=== PATIENT | female | born 1985 | race Caucasian/White ===

== ENCOUNTER 2016-11-18 11:13 | Inpatient (IN) | payer OTHER ==
[2016-11-18] VITALS (87 sets, daily range): BP systolic 91–159; BP diastolic 57–106; PULSE 63–119; RESP 18–20; TEMP 97.3–100.1; O2SAT 95–100
[~2016-11-18] VITALS: Ht 165.1 cm; Wt 76.0 kg
[2016-11-18] MEDS ORDERED: LACTATED RINGER'S 1000 ML INJ 1,000 ML IV PRN (12:19)
--- NOTE | 2016-11-18 12:19 | PD ---
HPI Chief Complaint contractions and SROM Date Seen: Nov 18, 2016 Time Seen: 12:08 Travel History International Travel<30 Days: No Contact w/Intl Traveler<30Days: No Known Affected Area: No History of Present Illness HPI 31-year-old 1 at 39+ weeks gestation who reports spontaneous rupture of membranes at midnight last night with increasing contractions since that time. She is now having contractions every 3 minutes. She reports that the fluid was clear. She denies any vaginal bleeding. No fever or chills or abdominal pain other than the contractions. Her cervix is 2/90/-1/vtx with gross ROM. Weeks Gestation: 39 Para: 0 : 1 History Past Medical History Narrative Medical One prior kidney infection not during this Obstetric History Obstetric History Primigravida, patient of Dr. Taylor GBS positive, A+, AST negative, rubella immune, RPR nonreactive Past Surgical History Narrative Surgical Breast augmentation Family History Family History: Negative Social History Narrative Social History , is [employer] Alcohol Use: No Tobacco Use: No Substance Abuse: No Review of Systems Except as stated in HPI: all other systems reviewed are Neg Physical Exam Narrative GENERAL: Well-nourished, well-developed patient. SKIN: Warm and dry. HEAD: Normocephalic and atraumatic. EYES: No scleral icterus. No injection or drainage. ENT: No nasal drainage noted. Mucous membranes pink. Airway patent. NECK: Supple, trachea midline. No JVD. CARDIOVASCULAR: Regular rate and rhythm without murmurs, gallops, or rubs. RESPIRATORY: Breath sounds equal bilaterally. No accessory muscle use. ABDOMEN/GI: Abdomen soft, non-tender, bowel sounds present, no rebound, no guarding Gravid to [-] weeks size Fundal Height: [38-] GENITOURINARY: External Genitalia: intact and normal in appearance BUS glands: [-Negative] Cervix: [-] Dilatation: [-2] Effacement: [80-] Station: [--1] Presentation: [Vertex-] Membranes: [ruptured] Uterine Contractions: [-Every 3] FHT's: Category: [1-] Baseline: [-] Reactive: [-] Variability: [-] Decels: [-] EXTREMITIES: No cyanosis or edema. BACK: Nontender without obvious deformity. No CVA tenderness. NEUROLOGICAL: Awake and alert. Motor and sensory grossly within normal limits. Five out of 5 muscle strength in all muscle groups. Normal speech. MDM Medical Record Reviewed: Yes Narrative Course / MDM Assessment: 39+ week primigravida in early labor with spontaneous rupture membranes Plan: Admit for labor management, GBS prophylaxis Alhaji Sands MD Nov 18, 2016 12:19
--- NOTE | 2016-11-18 12:24 | HHI.HP ---
History & Physical H&P HPI HPI Chief Complaint contractions and SROM Date Seen: Nov 18, 2016 Time Seen: 12:08 Travel History International Travel<30 Days: No Contact w/Intl Traveler<30Days: No Known Affected Area: No History of Present Illness HPI 31-year-old 1 at 39+ weeks gestation who reports spontaneous rupture of membranes at midnight last night with increasing contractions since that time. She is now having contractions every 3 minutes. She reports that the fluid was clear. She denies any vaginal bleeding. No fever or chills or abdominal pain other than the contractions. Her cervix is 2/90/-1/vtx with gross ROM. Weeks Gestation: 39 Para: 0 : 1 History (Limited) History Past Medical History Narrative Medical One prior kidney infection not during this Obstetric History Obstetric History Primigravida, patient of Dr. Taylor GBS positive, A+, AST negative, rubella immune, RPR nonreactive Past Surgical History Narrative Surgical Breast augmentation Family History Family History: Negative Social History Narrative Social History , is active [employer] Alcohol Use: No Tobacco Use: No Substance Abuse: No Allergies-Medications Allergies-Medications ROS Review of Systems Except as stated in HPI: all other systems reviewed are Neg Physical Exam Physical Exam Narrative GENERAL: Well-nourished, well-developed patient. SKIN: Warm and dry. HEAD: Normocephalic and atraumatic. EYES: No scleral icterus. No injection or drainage. ENT: No nasal drainage noted. Mucous membranes pink. Airway patent. NECK: Supple, trachea midline. No JVD. CARDIOVASCULAR: Regular rate and rhythm without murmurs, gallops, or rubs. RESPIRATORY: Breath sounds equal bilaterally. No accessory muscle use. ABDOMEN/GI: Abdomen soft, non-tender, bowel sounds present, no rebound, no guarding Gravid to [-] weeks size Fundal Height: [38-] GENITOURINARY: External Genitalia: intact and normal in appearance BUS glands: [-Negative] Cervix: [-] Dilatation: [-2] Effacement: [80-] Station: [--1] Presentation: [Vertex-] Membranes: [ruptured] Uterine Contractions: [-Every 3] FHT's: Category: [1-] Baseline: [-] Reactive: [-] Variability: [-] Decels: [-] EXTREMITIES: No cyanosis or edema. BACK: Nontender without obvious deformity. No CVA tenderness. NEUROLOGICAL: Awake and alert. Motor and sensory grossly within normal limits. Five out of 5 muscle strength in all muscle groups. Normal speech. Data Data MDM MDM Medical Record Reviewed: Yes Narrative Course / MDM Assessment: 39+ week primigravida in early labor with spontaneous rupture membranes Plan: Admit for labor management, GBS prophylaxis Alhaji Sands MD Nov 18, 2016 12:19 Alhaji Sands MD Nov 18, 2016 12:24
[2016-11-18] MEDS ORDERED: ZOLO50TA PO (12:29)
[2016-11-18] MEDS ORDERED: METF1000 PO (12:29)
[2016-11-18] MEDS ORDERED: PNV11TAB (12:29)
[2016-11-18] MEDS ORDERED: MINERAL OIL 10 ML VIAL TOPICAL PRN (12:30)
[2016-11-18] MEDS ORDERED: OXYTOCIN 30 UNITS-500ML PREMIX 500 ML IV ONE (12:30)
[2016-11-18] MEDS ORDERED: LIDOCAINE HCL 1% 50 ML VIAL INFIL PRN (12:30)
[2016-11-18] MEDS ORDERED: PENICILLIN G POTASSIUM INJ 5,000,000 UNITS in SODIUM CHLORIDE 0.9% INJ 100 ML IV ONE (12:30)
[2016-11-18] MEDS ORDERED: LIDOCAINE HCL 1% 50 ML VIAL I-DERMAL PRN (12:30)
[2016-11-18] MEDS ORDERED: SODIUM CHLORID 0.9% 500 ML INJ 500 ML IV PRN (12:30)
[2016-11-18] MEDS ORDERED: ONDANSETRON HCL 4 MG/2 ML VIAL IV PRN (12:30)
[2016-11-18] MEDS ORDERED: SODIUM CHLOR 0.9% 1000 ML INJ 1,000 ML IV PRN (12:39)
[2016-11-18 12:47] LABS: AUTOMATED NEUTROPHIL # 6.7 TH/MM3 (1.8-7.7); BASOPHIL # 0.1 TH/MM3 (0-0.2); BASOPHIL % 0.8 % (0.0-2.0); EOSINOPHIL # 0.1 TH/MM3 (0-0.4); EOSINOPHIL % 1.3 % (0.0-4.0); HEMATOCRIT 40.3 % (35.0-46.0); HEMO FLAGS DIFF FINAL; LYMPH % 19.4 % (9.0-44.0); LYMPHOCYTE # 1.8 TH/MM3 (1.0-4.8); MEAN CELL VOLUME 89.5 FL (80.0-100.0); MEAN CORPUSCULAR HEMOGLOBIN 30.3 PG (27.0-34.0); MEAN CORPUSCULAR HGB CONC 33.9 % (32.0-36.0); MONO % 6.3 % (0.0-8.0); NEUT % 72.2 % (16.0-70.0); PLATELET COUNT 147 TH/MM3 (150-450); RED CELL DISTRIBUTION WIDTH 12.5 % (11.6-17.2); WHITE BLOOD COUNT 9.3 TH/MM3 (4.0-11.0)
[2016-11-18] MEDS: LACTATED RINGER'S 1000 ML INJ 1,000 ML IV SCH ×2 (12:56→23:35)
[2016-11-18] MEDS ORDERED: fentaNYL 2MCG-BUPIV 0.125% INJ 100 ML ONE (13:17)
[2016-11-18] MEDS ORDERED: ePHEDrine/NS 25 MG/5 ML SYR ONE (13:17)
[2016-11-18] MEDS ORDERED: ePHEDrine/NS 25 MG/5 ML SYR IV PRN (14:15)
[2016-11-18] MEDS ORDERED: fentaNYL 2MCG-BUPIV 0.125% 100 ML EPIDURAL SCH (14:15)
[2016-11-18] MEDS ORDERED: NO SYSTEM NARCOTICS PRN (14:15)
[2016-11-18] MEDS ORDERED: DO NOT ADMINISTER ANTICOAGULANTS PRN (14:15)
[2016-11-18] MEDS ORDERED: DIPHTH/TETANUS/ACEL PERTUSSIS (BOOSTER) 0.5 ML VIAL/PFS IM ONE (16:00)
[2016-11-18] MEDS ORDERED: MEASLES, MUMPS, RUBELLA VACCINE 0.5 ML VIAL SQ ONE (16:00)
[2016-11-18] MEDS ORDERED: PENICILLIN G POTASSIUM INJ 2,500,000 UNITS in SODIUM CHLORIDE 0.9% INJ 100 ML IV SCH (17:00)
[2016-11-18 18:28] LABS: BLOOD, URINE MOD (NEG); COMMENT (UR) CULTURE INDICATED; CULTURE IF INDICATED CULTURE INDICATED; GLUCOSE,URINE NEG (NEG); KETONE, URINE 10 mg/dL (NEG); MUCUS URINE FEW /lpf (OCC); NITRITE,URINE NEG (NEG); PH, URINE 6.5 (5.0-8.5); URINE COLOR LIGHT-YELLOW (YELLW/STRAW)
[2016-11-18 19:00] LABS: ANION GAP 11 MEQ/L (5-15); AST (GOT) 26 U/L (15-37); BICARBONATE 21.3 MEQ/L (21.0-32.0); BLOOD UREA NITROGEN 7 MG/DL (7-18); CHLORIDE 108 MEQ/L (98-107); GLOMERULAR FILTRATION RATE 76 ML/MIN (>89); POTASSIUM 3.4 MEQ/L (3.5-5.1); SODIUM (NA) 140 MEQ/L (136-145)
[2016-11-18 19:01] LABS: ALT (GPT) 26 U/L (10-53)
[2016-11-18 19:03] LABS: ALKALINE PHOSPHATASE 135 U/L (45-117); TOTAL BILIRUBIN ADULT 0.8 MG/DL (0.2-1.0)
[2016-11-18] MEDS ORDERED: MAGNESIUM SULFATE 40 GM PREMIX 1,000 ML ONE (19:20)
[2016-11-18] MEDS ORDERED: MAGNESIUM SULFATE 4 GM PREMIX 100 ML ONE (19:20)
[2016-11-18] MEDS ORDERED: LACTATED RINGER'S 1000 ML INJ 1,000 ML IV SCH (19:30)
[2016-11-18] MEDS ORDERED: CALCIUM GLUCONATE 10% 1 GM/10 ML VIAL IV PRN (19:30)
[2016-11-18] MEDS ORDERED: MAGNESIUM SULFATE 4GRAM PRMIX-LOAD DOSE IV ONE (19:30)
[2016-11-18] MEDS ORDERED: MAGNESIUM SULFATE 40 GM PREMIX 1,000 ML IV SCH (19:45)
[2016-11-18] MEDS ORDERED: MISOPROSTOL 200 MCG TAB ONE ×2 (21:21→23:23)
--- NOTE | 2016-11-18 21:41 | PD.OB.DELI ---
Weeks gestation: 39 Gest age assessed date: Nov 18, 2016 Gest age assessed time: 21:40 Pt started active labor?: Yes Active labor start date: Nov 18, 2016 Active labor start time: 12:00 Medical induction of labor?: No Artificial rupture of membrane: No Anesthesia: Epidural Episiotomy: Midline Vaginal Delivery: Normal Presentation: Occiput anterior Nuchal Cord: x1 : Female Delivery date: Nov 18, 2016 Delivery time: 21:07 One Minute : 6 Five Minute : 8 Weight: 7-9 Placenta: Spontaneous delivery Repair: Chromic interrupted, Vicryl running Estimated blood loss: 600cc Ysabel Henry MD Nov 18, 2016 21:41
[2016-11-18] MEDS ORDERED: SODIUM CHLORIDE 0.9% FLUSH 10 ML FLUSH IV FLUSH PRN (21:45)
[2016-11-18] MEDS ORDERED: OXYTOCIN 30 UNITS-500ML PREMIX 500 ML IV SCH (21:45)
[2016-11-18] MEDS ORDERED: DOCUSATE SODIUM 50 MG/SENNA 8.6 MG TAB PO PRN (21:45)
[2016-11-18] MEDS ORDERED: ONDANSETRON ODT 4 MG TAB PO PRN (21:45)
[2016-11-18] MEDS ORDERED: ALUMINUM/MAGNESIUM/SIMETH 30 ML CUP PO PRN (21:45)
[2016-11-18] MEDS ORDERED: ZOLPIDEM TARTRATE 5 MG TAB PO PRN (21:45)
[2016-11-18] MEDS ORDERED: ACETAMINOPHEN 325 MG TAB PO PRN (21:45)
[2016-11-18] MEDS ORDERED: MISOPROSTOL 200 MCG TAB RECTAL SCH (23:25)
[2016-11-19] VITALS (36 sets, daily range): BP systolic 86–144; BP diastolic 67–92; PULSE 74–105; RESP 16–18; TEMP 98–98.2; O2SAT 96–100
[2016-11-19 01:10] LABS: AUTOMATED NEUTROPHIL # 16.2 TH/MM3 (1.8-7.7); BASOPHIL % 0.2 % (0.0-2.0); HEMATOCRIT 33.2 % (35.0-46.0); HEMO FLAGS DIFF FINAL; LYMPH % 4.7 % (9.0-44.0); LYMPHOCYTE # 0.8 TH/MM3 (1.0-4.8); MEAN CELL VOLUME 90.6 FL (80.0-100.0); MEAN CORPUSCULAR HGB CONC 33.2 % (32.0-36.0); NEUT % 89.1 % (16.0-70.0); PLATELET COUNT 143 TH/MM3 (150-450); RED BLOOD COUNT 3.66 MIL/MM3 (4.00-5.30); RED CELL DISTRIBUTION WIDTH 12.6 % (11.6-17.2); WHITE BLOOD COUNT 18.2 TH/MM3 (4.0-11.0)
[2016-11-19] MEDS: WITCH HAZEL 50%/GLYCERIN 12.5% 40 PAD JAR TOPICAL PRN ×2 (01:30→23:22)
[2016-11-19] MEDS: BENZOCAINE 20% TOPICAL SPRAY 60 ML CAN TOPICAL PRN ×2 (01:30→23:23)
[2016-11-19] MEDS: IBUPROFEN 600 MG TAB PO PRN ×2 (08:08→20:02)
[2016-11-19] MEDS ORDERED: SODIUM CHLORIDE 0.9% FLUSH 10 ML FLUSH IV FLUSH SCH (09:00)
--- NOTE | 2016-11-19 10:06 | HHI.OB ---
Subjective Post Day: 1 Remarks feeling better, bleeding much less after PP hemorrhage (cytotec 400 mcg MO x2 last night) Objective Vitals/I&O Vital Signs Date Time Temp Pulse Resp B/P (MAP) Pulse Ox O2 Delivery O2 Flow Rate FiO2 11/19/16 09:00 74 117/76 (90) 11/19/16 09:00 98.1 16 11/19/16 08:00 17 11/19/16 07:43 77 116/69 (85) 11/19/16 07:04 84 110/67 (81) 11/19/16 07:00 98.0 11/19/16 06:00 18 11/19/16 04:07 86 115/74 (88) 11/19/16 04:00 98.2 18 11/19/16 03:09 78 124/69 (87) 11/19/16 03:00 18 11/19/16 01:35 101 98 11/19/16 01:30 88 11/19/16 01:30 18 11/19/16 01:30 91 109/74 (86) 96 11/19/16 01:25 86 96 11/19/16 01:20 86 97 11/19/16 01:15 81 11/19/16 01:15 83 108/73 (85) 97 11/19/16 01:10 105 99 11/19/16 01:05 90 99 11/19/16 01:00 93 11/19/16 01:00 89 114/79 (91) 97 11/19/16 00:55 87 98 11/19/16 00:50 88 100 11/19/16 00:49 18 11/19/16 00:45 85 108/75 (86) 98 11/19/16 00:45 85 11/19/16 00:41 18 11/19/16 00:40 87 98 11/19/16 00:35 80 99 11/19/16 00:31 91 86/71 (76) 11/19/16 00:30 91 99 11/19/16 00:30 18 11/19/16 00:25 96 97 11/19/16 00:20 89 97 11/19/16 00:15 94 11/19/16 00:15 93 117/79 (92) 100 11/19/16 00:11 18 11/19/16 00:10 89 99 11/19/16 00:05 90 100 11/19/16 00:00 87 18 106/70 (82) 100 11/19/16 00:00 87 11/18/16 23:55 80 100 11/18/16 23:50 88 100 11/18/16 23:45 82 18 117/75 (89) 100 11/18/16 23:45 90 11/18/16 23:40 96 100 11/18/16 23:35 91 95 11/18/16 23:30 18 11/18/16 23:30 90 107/70 (82) 11/18/16 23:30 90 11/18/16 23:30 95 11/18/16 23:25 89 11/18/16 23:20 87 11/18/16 23:15 95 92/62 (72) 11/18/16 23:15 97 11/18/16 23:12 83 94/57 (69) 11/18/16 23:11 87 91/59 (70) 11/18/16 23:10 89 11/18/16 23:09 18 11/18/16 23:05 91 11/18/16 23:00 99 116/74 (88) 11/18/16 23:00 18 11/18/16 23:00 96 11/18/16 22:55 100 11/18/16 22:50 119 11/18/16 22:45 18 11/18/16 22:45 91 11/18/16 22:45 93 112/73 (86) 11/18/16 22:40 94 11/18/16 22:35 90 11/18/16 22:31 87 111/80 (90) 11/18/16 22:30 97 11/18/16 22:26 18 11/18/16 22:25 88 11/18/16 22:24 88 128/90 (103) 11/18/16 22:20 87 11/18/16 22:15 93 11/18/16 22:15 18 11/18/16 22:10 110 11/18/16 22:05 116 11/18/16 22:04 118 129/101 (110) 11/18/16 22:00 110 11/18/16 22:00 18 11/18/16 21:55 110 11/18/16 21:50 101 11/18/16 21:45 112 11/18/16 21:45 18 11/18/16 21:40 105 11/18/16 21:35 91 11/18/16 21:32 99.7 11/18/16 21:30 18 11/18/16 21:30 93 145/106 (119) 11/18/16 21:30 90 11/18/16 21:25 93 11/18/16 21:20 99 11/18/16 20:45 100.1 11/18/16 20:31 96 144/103 (117) 11/18/16 20:30 102 11/18/16 20:15 98.2 11/18/16 20:10 97 11/18/16 20:05 87 11/18/16 20:00 90 11/18/16 20:00 104 151/102 (118) 11/18/16 19:40 87 146/97 (113) 11/18/16 19:40 80 11/18/16 19:35 78 11/18/16 19:30 76 11/18/16 19:30 83 143/99 (114) 11/18/16 19:23 97.3 11/18/16 19:14 18 11/18/16 19:00 67 159/98 (118) 11/18/16 18:30 69 139/97 (111) 11/18/16 18:15 18 11/18/16 18:00 68 150/99 (116) 11/18/16 17:43 68 152/97 (115) 11/18/16 17:41 18 11/18/16 17:30 68 148/98 (115) 11/18/16 17:00 98.3 68 140/89 (106) 11/18/16 16:54 18 11/18/16 16:45 67 137/87 (104) 11/18/16 16:30 70 131/87 (102) 11/18/16 16:15 76 130/84 (99) 11/18/16 16:00 79 129/82 (98) 11/18/16 15:45 63 125/96 (106) 11/18/16 15:30 76 18 131/92 (105) 11/18/16 15:30 97.8 17 15:15 88 135/94 (108) 11/18/16 15:00 71 131/82 (98) 11/18/16 14:45 85 122/90 (101) 11/18/16 14:38 79 117/83 (94) 11/18/16 14:30 80 135/98 (110) 11/18/16 14:25 76 136/92 (107) 11/18/16 14:20 75 139/85 (103) 11/18/16 14:15 79 130/84 (99) 11/18/16 14:10 84 138/90 (106) 11/18/16 14:05 79 145/95 (112) 11/18/16 14:00 74 11/18/16 14:00 75 137/89 (105) 11/18/16 13:55 81 130/84 (99) 11/18/16 13:55 82 11/18/16 13:50 87 11/18/16 13:50 74 129/91 (104) 11/18/16 13:45 76 138/94 (109) 11/18/16 13:45 73 11/18/16 13:40 80 11/18/16 13:40 79 128/91 (103) 11/18/16 13:35 80 11/18/16 13:35 79 136/82 (100) 11/18/16 13:30 20 11/18/16 13:30 97.7 92 149/91 (110) 11/18/16 13:30 78 11/18/16 13:26 82 147/98 (114) 11/18/16 13:25 100 11/18/16 13:03 81 140/90 (107) Other Results ht 33 Objective Remarks GENERAL: Well-nourished, well-developed patient. CARDIOVASCULAR: Regular rate and rhythm without murmurs, gallops, or rubs. RESPIRATORY: Breath sounds equal bilaterally. No accessory muscle use. ABDOMEN/GI: Abdomen soft, non-tender. Fundus: Firm, non-tender at umbilicus. GENITOURINARY: Light to moderate bleeding. EXTREMITIES: No cyanosis or edema, non-tender, without signs of DVT. Medications and IVs Current Medications Medications (Trade) Dose Ordered Sig/Ericka Route Start Time Stop Time Status Last Admin (Calcium Gluconate Inj) 1 gm ONCE PRN IV 11/18/16 19:30 11/25/16 19:29 (NS Flush) 2 ml BID IV FLUSH 11/19/16 09:00 (NS Flush) 2 ml UNSCH PRN IV FLUSH 11/18/16 21:45 (Tylenol) 650 mg Q4H PRN PO 11/18/16 21:45 11/18/16 23:41 (Motrin) 600 mg Q6H PRN PO 11/18/16 21:45 11/19/16 08:08 (Americaine 20% Top Spr) 1 spray Q4H PRN TOPICAL 11/18/16 21:45 11/19/16 01:30 (Tucks Pads) 1 applic QID PRN TOPICAL 11/18/16 21:45 11/19/16 01:30 (Ana Rosa-Colace) 2 tab Q12H PRN PO 11/18/16 21:45 (Ambien) 5 mg HS PRN PO 11/18/16 21:45 (Mag-Al Plus Susp Liq) 15 ml Q8H PRN PO 11/18/16 21:45 (Zofran Odt) 4 mg Q6H PRN PO 11/18/16 21:45 Assessment/Plan Problem List: (1) Vaginal delivery ICD Codes: O80 - Encounter for full-term uncomplicated delivery Assessment and Plan PPD #1 , PP hemorrhage, cbc stable Discharge Planning routine in am Attending Attestation pt seen by Ysabel Bardales MD Nov 19, 2016 10:06
[2016-11-20] VITALS: BP 117/86; PULSE 87; RESP 20; TEMP 98.6
--- NOTE | 2016-11-20 09:06 | HHI.OB ---
Subjective Post Day: 2 Remarks PPD#2, stable, plan discharge for today Objective Vitals/I&O Vital Signs Date Time Temp Pulse Resp B/P (MAP) Pulse Ox O2 Delivery O2 Flow Rate FiO2 11/20/16 00:00 98.6 87 20 117/86 (96) 11/19/16 21:00 90 18 144/88 (106) 11/19/16 20:00 129/92 (104) 11/19/16 20:00 98.2 98 18 11/19/16 17:31 94 142/87 (105) Other Results ht 33 Objective Remarks GENERAL: Well-nourished, well-developed patient. CARDIOVASCULAR: Regular rate and rhythm without murmurs, gallops, or rubs. RESPIRATORY: Breath sounds equal bilaterally. No accessory muscle use. ABDOMEN/GI: Abdomen soft, non-tender. Fundus: Firm, non-tender at umbilicus. GENITOURINARY: Light to moderate bleeding. EXTREMITIES: No cyanosis or edema, non-tender, without signs of DVT. Medications and IVs Current Medications Medications (Trade) Dose Ordered Sig/Ericka Route Start Time Stop Time Status Last Admin (Calcium Gluconate Inj) 1 gm ONCE PRN IV 11/18/16 19:30 11/25/16 19:29 (NS Flush) 2 ml BID IV FLUSH 11/19/16 09:00 (NS Flush) 2 ml UNSCH PRN IV FLUSH 11/18/16 21:45 (Tylenol) 650 mg Q4H PRN PO 11/18/16 21:45 11/18/16 23:41 (Motrin) 600 mg Q6H PRN PO 11/18/16 21:45 11/19/16 20:02 (Americaine 20% Top Spr) 1 spray Q4H PRN TOPICAL 11/18/16 21:45 11/19/16 23:23 (Tucks Pads) 1 applic QID PRN TOPICAL 11/18/16 21:45 11/19/16 23:22 (Ana Rosa-Colace) 2 tab Q12H PRN PO 11/18/16 21:45 (Ambien) 5 mg HS PRN PO 11/18/16 21:45 (Mag-Al Plus Susp Liq) 15 ml Q8H PRN PO 11/18/16 21:45 (Zofran Odt) 4 mg Q6H PRN PO 11/18/16 21:45 Assessment/Plan Problem List: (1) Vaginal delivery ICD Codes: O80 - Encounter for full-term uncomplicated delivery Assessment and Plan PPD #2 ;, PP hemorrhage, cbc stable discharge to home Discharge Planning routine in am Attending Attestation seen by Alhaji Maldonado MD Nov 20, 2016 09:06
--- NOTE | 2016-11-20 09:08 | HHI.DS ---
Admission Date Nov 18, 2016 at 12:19 Admitting Diagnosis Diagnosis: Delivery Date: Nov 18, 2016 Vaginal Delivery: Normal : Female Brief History 31-year-old 1 at 39+ weeks gestation who reports spontaneous rupture of membranes at midnight last night with increasing contractions since that time. She is now having contractions every 3 minutes. She reports that the fluid was clear. She denies any vaginal bleeding. No fever or chills or abdominal pain other than the contractions. Her cervix is 2/90/-1/vtx with gross ROM. Pt Condition on Discharge: Good Discharge Disposition: Discharge Home Discharge Instructions Diet Instructions: As Tolerated, No Restrictions Activities You Can Perform: Shower Only-No Bath Activities to Avoid: Driving for 24 hrs, Prolonged Standing, Strenuous Activity , Sexual Activity Alhaji Avendaño MD Nov 20, 2016 09:08
[2016-11-20 09:10] VITALS: BP 134/86; PULSE 84; RESP 18; TEMP 98.3
== END 2016-11-20 17:55 | disposition home or self-care (01) | DRG 774 ==
LOC: HOBED 11:13 → H2EB 12:19 → H1EA 11-19 08:26
PROVIDERS: ADMIT Obstetrics & Gynecology; ATTEND Obstetrics & Gynecology
PROC: 10E0XZZ Delivery of Products of Conception, External Approach (ICD-10-PCS; principal; 2016-11-18)
PROC: 0W8NXZZ Division of Female Perineum, External Approach (ICD-10-PCS; 2016-11-18)
PROC: 00HU33Z Insertion of Infusion Device into Spinal Canal, Percutaneous Approach (ICD-10-PCS; 2016-11-18)
PROC: 3E0R3CZ (ICD-10-PCS; 2016-11-18)
DX: O99.824 Streptococcus B carrier state complicating childbirth (principal); O72.1 Other immediate postpartum hemorrhage; O69.81X0 Labor and delivery complicated by cord around neck, without compression, not applicable or unspecified; Z37.0 Single live birth; Z3A.39 39 weeks gestation of pregnancy
CPT/HCPCS: 59025; 80053; 81001; 84112; 85025; 86900; 86901; 87086; J2540; J3010; J3475; J7120